=== PATIENT | female | born 1980 | race Caucasian/White ===

== ENCOUNTER 2016-12-12 20:42 | Emergency (ER) | payer OTHER ==
[2016-12-12 20:57] VITALS: BP 122/66; PULSE 82; TEMP 98.2; BMI 21.0
[2016-12-12 21:50] LABS: URINE APPEARANCE CLEAR; URINE BILIRUBIN NEGATIVE (NEGATIVE); URINE COLOR STRAW; URINE GLUCOSE (UA) NEGATIVE (NEGATIVE); URINE KETONE NEGATIVE (NEGATIVE); URINE NITRITE NEGATIVE (NEGATIVE); URINE PROTEIN NEGATIVE (NEGATIVE); URINE UROBILINOGEN NEGATIVE E.U./dl (0.2-1.0)
[2016-12-12 21:52] LABS: URINE BLOOD 2+ (NEGATIVE); URINE LEUK ESTERASE 2+ (NEGATIVE)
[2016-12-12 21:54] LABS: URINE BACTERIA RARE /hpf (NONE SEEN); URINE MUCUS RARE; URINE RBC 22 /hpf (0-3); URINE WBC 93 /hpf (3-5)
--- NOTE | 2016-12-12 22:13 | PDOC ---
History of Present Illness - General Chief Complaint: Pain Stated Complaint: URINARY PROBLEM Time Seen by Provider: 12/12/16 21:15 History Source: Patient Exam Limitations: Language Barrier - History of Present Illness Initial Comments: 12/12/16 22:09 translating; CC dysuria x 5 days Timing/Duration: reports: getting worse Quality: reports: moderate Abdominal Pain Onset Location: reports: suprapubic Pain Radiation: reports: no radiation Aggravating Factors: worse with: None Past History - Past Medical History Allergies/Adverse Reactions: Allergies Allergy/AdvReac Type Severity Reaction Status Date / Time No Known Allergies Allergy Verified 12/12/16 20:57 Home Medications: Ambulatory Orders Butalb/Acetaminophen/Caffeine [Fioricet 50-300-40 mg Capsule] 1 each PO TID #30 capsule 07/05/15 Other medical history: denies - Surgical History Appendectomy: Yes - Psycho/Social/Smoking Cessation Hx Anxiety: No Suicidal Ideation: No Smoking History: Never smoked Have you smoked in the past 12 months: No Hx Alcohol Use: No Drug/Substance Use Hx: No Substance Use Type: None Review of Systems - Review of Systems Constitutional: No: Chills, Fever, Malaise HEENTM: No: Symptoms Reported Respiratory: No: Symptoms reported Cardiac (ROS): No: Symptoms Reported ABD/GI: No: Symptoms Reported, Diarrhea, Nausea, Vomiting : Yes: Dysuria, Frequency, Hematuria, Urgency. No: Discharge, Flank Pain *Physical Exam - Vital Signs Last Vital Signs Temp Pulse Resp BP Pulse Ox 98.2 F 82 18 122/66 100 12/12/16 20:54 12/12/16 20:54 12/12/16 20:54 12/12/16 20:54 12/12/16 20:54 - Physical Exam General Appearance: Yes: Appropriately Dressed. No: Apparent Distress HEENT: positive: TMs Normal, Pharynx Normal Neck: positive: Supple. negative: Tender, Rigid Respiratory/Chest: positive: Lungs Clear Cardiovascular: positive: Regular Rhythm, Regular Rate. negative: Murmur Gastrointestinal/Abdominal: positive: Normal Bowel Sounds, Soft. negative: Tender, Organomegaly, Tenderness Rectal Exam: positive: deferred ED Treatment Course - ADDITIONAL ORDERS Additional order review: Laboratory Results 12/12/16 21:12 Urine Color Straw Urine Appearance Clear Urine pH 6.0 Ur Specific [place] 1.005 Urine Protein Negative Urine Glucose (UA) Negative Urine Ketones Negative Urine Blood 2+ H Urine Nitrite Negative Urine Bilirubin Negative Urine Urobilinogen Negative Ur Leukocyte Esterase 2+ H Urine RBC 22 Urine WBC 93 Ur Epithelial Cells Rare Urine Bacteria Rare Urine Mucus Rare Urine HCG, Qual Negative Medical Decision Making - Medical Decision Making 12/12/16 22:11 UA and symptoms suggest cystitis will treat with abx; pt did not want pyridium *DC/Admit/Observation/Transfer Diagnosis at time of Disposition: Urinary tract infection Qualifiers: Urinary tract infection type: acute cystitis Hematuria presence: with hematuria Qualified Code(s): N30.01 - Acute cystitis with hematuria - Discharge Dispostion Disposition: HOME Condition at time of disposition: Stable Admit: No - Patient Instructions Additional Instructions: see local MD 5 days if no better; lots of fluids - Post Discharge Activity Work/School Note: Back to Work
[2016-12-12] MEDS ORDERED: NITROFURANTOIN MACROCRYSTAL 50 MG CAPSULE (FP) PO SCH (22:15)
[2016-12-12] MEDS ORDERED: NITROFURANTOIN MACROCRYSTAL 50 MG CAPSULE (FP) ONE (22:21)
[2016-12-12] MEDS ORDERED: PHENAZOPYRIDINE HCL 100 MG TABLET (FP) ONE (22:29)
[2016-12-12] MEDS ORDERED: PHENAZOPYRIDINE HCL 100 MG TABLET (FP) PO ONE (22:30)
== END 2016-12-12 22:35 | disposition home or self-care (01) ==
LOC: JER 20:42 → JERFT 20:42
DX: N30.01 Acute cystitis with hematuria (principal); B96.89 Other specified bacterial agents as the cause of diseases classified elsewhere
CPT/HCPCS: 81003; 81015; 84703; 87086; 87186; 99281-25

== ENCOUNTER 2021-12-24 09:32 | Emergency (ER) | payer OTHER ==
[2021-12-24 09:50] VITALS: BP 119/71; PULSE 77; TEMP 98.1; BMI 20.9
[2021-12-24] MEDS ORDERED: LIDOCAINE 5% TOPICAL PATCH TP ONE (11:03)
[2021-12-24] MEDS ORDERED: diazePAM 2 MG TABLET PO ONE (11:03)
[2021-12-24] MEDS ORDERED: diazePAM 2 MG TABLET ONE (11:53)
[2021-12-24] MEDS ORDERED: LIDOCAINE 5% TOPICAL PATCH ONE (11:53)
[2021-12-24] MEDS ORDERED: IBUPROFEN 400 MG TABLET (FP) PO ONE ×2 (13:25→13:40)
[2021-12-24] MEDS ORDERED: LIDOCAINE PATCH REMOVAL MC SCH (22:00)
== END 2021-12-24 15:18 | disposition home or self-care (01) ==
LOC: JERFT 09:32
DX: M54.2 Cervicalgia (principal); M54.50 Low back pain, unspecified; V49.40XA Driver injured in collision with unspecified motor vehicles in traffic accident, initial encounter
CPT/HCPCS: 72125-TC; 72131-TC; 84703; 99285-25

== ENCOUNTER 2023-12-09 20:55 | Emergency (ER) | payer OTHER ==
[2023-12-09 21:00] VITALS: BP 120/73; PULSE 85; RESP 20; TEMP 99.1
[2023-12-09 21:13] LABS: HCG,QUALITATIVE URINE Negative
[2023-12-09 21:14] LABS: PH,URINE 6.5 (5.0-8.0); URINE APPEARANCE CLEAR; URINE BILIRUBIN NEGATIVE (NEGATIVE); URINE COLOR RED; URINE GLUCOSE (UA) NEGATIVE (NEGATIVE); URINE KETONE NEGATIVE (NEGATIVE); URINE LEUK ESTERASE 3+ (NEGATIVE); URINE NITRITE NEGATIVE (NEGATIVE); URINE PROTEIN 2+ (NEGATIVE); URINE UROBILINOGEN 0.2 mg/dL (0.2-1.0)
[2023-12-09] MEDS ORDERED: SULFAMETHOXAZOLE/TRIMETHOPRIM 800MG/160MG D.S. TABLET ONE (21:41)
[2023-12-09] MEDS ORDERED: PHENAZOPYRIDINE HCL 100 MG TABLET (FP) ONE (21:41)
[2023-12-09 21:42] LABS: EPI CELLS 487 /uL (0-25.1); URINE RBC 27.3 /uL (0-23.9)
[2023-12-09 21:43] LABS: URINE BACTERIA 10.6 /uL (0-1359); URINE WBC 261 /uL (0-25.8); YEAST NONE SEEN (NEGATIVE)
[2023-12-09] MEDS: SULFAMETHOXAZOLE/TRIMETHOPRIM 800MG/160MG D.S. TABLET PO ONE (21:43)
[2023-12-09] MEDS: PHENAZOPYRIDINE HCL 100 MG TABLET (FP) PO ONE (21:43)
== END 2023-12-09 21:47 | disposition home or self-care (01) ==
LOC: JERFT 20:55
DX: N30.01 Acute cystitis with hematuria (principal); R30.0 Dysuria; R31.9 Hematuria, unspecified; R35.0 Frequency of micturition
CPT/HCPCS: 81003; 84703; 87077; 87086; 87186; 99283-25